=== PATIENT | female | born 1985 | race African-American/Black ===

== ENCOUNTER 2018-03-17 15:39 | Inpatient (IN) ==
[2018-03-17] MEDS ORDERED: ONDANSETRON 4 MG/2 ML VIAL ONE (16:24)
[2018-03-17] MEDS ORDERED: MORPHINE 4 MG/1 ML VIAL ONE (16:25)
[2018-03-17 16:31] LABS: Basophils # 0.1 10*3/uL (0.0-0.2); Basophils % 0.3 % (0.0-0.8); Eosinophils # 0.1 10*3/uL (0.0-0.87); Eosinophils % 0.8 % (0.00-10.9); Hematocrit 39.7 VOL% (35.7-47.0); Hemoglobin 12.1 GM/DL (12.0-16.0); Immature Granulocytes % 0.8 %; Immature Granulocytes Absolute 0.14 #; Lymphocytes # 3.4 10*3/uL (1.4-4.0); Lymphocytes % 18.5 % (21.3-54.2); Mean Corpuscular HGB Conc 30.5 GM/DL (32-36); Mean Corpuscular Hemoglobin 22 PG (27-34); Mean Corpuscular Volume 70.5 FL (87-102); Mean Platelet Volume 10.6 FL (9.6-12.0); Monocytes % 5.3 % (1.7-12.7); Neutrophils # 13.8 10*3/uL (1.4-7.4); Neutrophils % 74.3 % (38.7-73.9); Platelet Count 485 T/CUMM (130-400); Red Blood Count 5.63 MC/CUMM (3.8-5.5); Red Cell Distribution Width 16.2 % (9.3-17.3); White Blood Count 18.5 T/CUMM (4-12)
[2018-03-17] MEDS ORDERED: MORPHINE 4 MG/1 ML VIAL IV STA ×2 (16:39→19:41)
[2018-03-17] MEDS ORDERED: ONDANSETRON 4 MG/2 ML VIAL IV STA ×2 (16:40→19:41)
[2018-03-17 16:41] LABS: Alanine Aminotransferase 24 U/L (13-56); Albumin 3.1 G/DL (3.4-5.0); Alkaline Phosphatase 97 U/L (45-117); Aspartate Amino Transferase 22 U/L (0-37); Bilirubin,Total < 0.39 MG/DL (0.2-1.0); Blood Urea Nitrogen 14 MG/DL (7-18); Calcium 8.6 MG/DL (8.5-10.1); Glucose 111 MG/DL (74-106); Osmolality,Calculated 280.4 MOS/KG (273-304); Potassium 3.6 MMOL/L (3.5-5.1); Sodium 140 MMOL/L (136-145); Total Protein 8.2 G/DL (6.4-8.3)
[2018-03-17 17:52] LABS: Apearance,Urine CLEAR (Clear); Bilirubin,Urine Negative (Negative); Blood, Urine Negative (Negative); Glucose,Urine (UA) Negative (Negative); Ketones,Urine Negative (Negative); Mucus,Urine Occasional /LPF (Occasional); Nitrite,Urine Negative (Negative); Protein,Urine Negative; Urine Color Yellow (Yellow); Urine Specific Gravity 1.029 (1.001-1.035); Urine Urobilinogen < 2.0 EU/DL (0.2-1.0); WBC,Urine 1 /HPF (0-6)
[2018-03-17 19:26] LABS: Lactic Acid 3.5 MMOL/L (0.4-2.0)
[2018-03-17] MEDS ORDERED: ceFAZolin 1,000 MG VIAL ONE (20:50)
[2018-03-18] MEDS ORDERED: PROMETHAZINE 25 MG/1 ML VIAL IM PRN (02:34)
[2018-03-18] MEDS ORDERED: oxyCODONE IR 5 MG TABLET PO PRN (02:34)
[2018-03-18] MEDS ORDERED: MAGNESIUM HYDROXIDE SUSP 30 ML UDCUP PO PRN (02:34)
[2018-03-18] MEDS ORDERED: ONDANSETRON 4 MG/2 ML VIAL IV PRN (02:34)
[2018-03-18] MEDS ORDERED: SEVOFLURANE 1 UNIT/15 MINUTE INH ONE (03:16)
[2018-03-18] MEDS ORDERED: PROPOFOL 200 MG/20 ML VIAL IV ONE (03:16)
[2018-03-18] MEDS ORDERED: fentaNYL 100 MCG/2 ML VIAL ONE (03:17)
[2018-03-18] MEDS ORDERED: MIDAZOLAM 2 MG/2 ML VIAL ONE (03:17)
[2018-03-18] MEDS ORDERED: SUFentanil 50 MCG/ML AMP ONE (03:17)
[2018-03-18] MEDS ORDERED: DEXAMETHASONE 10 MG/1 ML VIAL ONE (03:17)
[2018-03-18] MEDS ORDERED: KETOROLAC 30 MG/1 ML VIAL ONE (03:18)
[2018-03-18] MEDS ORDERED: GLYCOPYRROLATE 0.4 MG/2 ML VIAL ONE (03:18)
[2018-03-18] MEDS ORDERED: SODIUM CHLORIDE 0.9% 3,000 ML IV ONE (03:18)
[2018-03-18] MEDS ORDERED: NEOSTIGMINE 10 MG/10 ML VIAL ONE (03:18)
[2018-03-18] MEDS ORDERED: ACETAMINOPHEN 1,000 MG/100 ML VIAL IV ONE (03:18)
[2018-03-18] MEDS ORDERED: ONDANSETRON 4 MG/2 ML VIAL ONE (03:18)
[2018-03-18] MEDS ORDERED: ROCURONIUM 100 MG/10 ML VIAL IV ONE (03:18)
[2018-03-18] MEDS ORDERED: SUCCINYLCHOLINE 200 MG/10 ML VIAL ONE (03:18)
[2018-03-18] MEDS: DEXTROSE 5% NACL 0.45% 1,000 ML IV SCH ×2 (03:40→23:23)
[2018-03-18] MEDS: HYDROmorphone 2 MG/1 ML VIAL IV PRN ×4 (04:53→21:49)
[2018-03-18 07:29] LABS: Basophils % 0.1 % (0.0-0.8); Hematocrit 32.4 VOL% (35.7-47.0); Immature Granulocytes % 0.2 %; Immature Granulocytes Absolute 0.02 #; Lymphocytes # 0.8 10*3/uL (1.4-4.0); Lymphocytes % 8.2 % (21.3-54.2); Mean Corpuscular HGB Conc 29.6 GM/DL (32-36); Mean Corpuscular Hemoglobin 21 PG (27-34); Mean Corpuscular Volume 70.4 FL (87-102); Mean Platelet Volume 10.7 FL (9.6-12.0); Monocytes # 0.7 10*3/uL (0.11-0.8); Monocytes % 6.5 % (1.7-12.7); Neutrophils # 8.7 10*3/uL (1.4-7.4); Platelet Count 395 T/CUMM (130-400); Red Cell Distribution Width 15.9 % (9.3-17.3)
[2018-03-18 07:35] LABS: White Blood Count 10.2 T/CUMM (4-12)
[2018-03-18 07:36] LABS: Hemoglobin 9.6 GM/DL (12.0-16.0)
[2018-03-18 07:48] LABS: Calcium 7.2 MG/DL (8.5-10.1); Osmolality,Calculated 282.1 MOS/KG (273-304)
[2018-03-18] MEDS: ceFAZolin 2,000 MG in PREMIX 1 EACH IV SCH ×2 (10:08→18:20)
[2018-03-18] MEDS: oxyCODONE IR 5 MG TABLET PO PRN (18:19)
[2018-03-18] MEDS: ENOXAPARIN 40 MG/0.4 ML SYRINGE SUBCUT SCH (22:59)
[2018-03-19] MEDS: DEXTROSE 5% NACL 0.45% 1,000 ML IV SCH ×3 (01:40→17:05)
[2018-03-19] MEDS: oxyCODONE IR 5 MG TABLET PO PRN ×2 (02:34→23:46)
[2018-03-19 06:38] LABS: Basophils % 0.3 % (0.0-0.8); Eosinophils % 0.2 % (0.00-10.9); Hematocrit 26.6 VOL% (35.7-47.0); Immature Granulocytes % 0.4 %; Immature Granulocytes Absolute 0.05 #; Lymphocytes # 1.7 10*3/uL (1.4-4.0); Lymphocytes % 14.4 % (21.3-54.2); Mean Corpuscular HGB Conc 30.1 GM/DL (32-36); Mean Corpuscular Hemoglobin 21 PG (27-34); Monocytes # 1.3 10*3/uL (0.11-0.8); Monocytes % 10.7 % (1.7-12.7); Neutrophils # 8.8 10*3/uL (1.4-7.4); Platelet Count 318 T/CUMM (130-400); Red Cell Distribution Width 15.8 % (9.3-17.3); White Blood Count 11.9 T/CUMM (4-12)
[2018-03-19] MEDS: HYDROmorphone 2 MG/1 ML VIAL IV PRN ×2 (06:46→17:12)
[2018-03-19] MEDS: ENOXAPARIN 40 MG/0.4 ML SYRINGE SUBCUT SCH (21:22)
[2018-03-20] MEDS: DEXTROSE 5% NACL 0.45% 1,000 ML IV SCH ×4 (03:14→21:24)
[2018-03-20] MEDS: HYDROmorphone 2 MG/1 ML VIAL IV PRN ×2 (03:15→21:24)
[2018-03-20 05:37] LABS: Basophils % 0.2 % (0.0-0.8); Eosinophils # 0.2 10*3/uL (0.0-0.87); Eosinophils % 1.4 % (0.00-10.9); Hematocrit 24.9 VOL% (35.7-47.0); Hemoglobin 7.5 GM/DL (12.0-16.0); Immature Granulocytes % 0.9 %; Immature Granulocytes Absolute 0.12 #; Lymphocytes # 2.7 10*3/uL (1.4-4.0); Lymphocytes % 20.2 % (21.3-54.2); Mean Corpuscular HGB Conc 30.1 GM/DL (32-36); Mean Corpuscular Hemoglobin 21 PG (27-34); Mean Corpuscular Volume 69.6 FL (87-102); Mean Platelet Volume 11.1 FL (9.6-12.0); Monocytes # 1.3 10*3/uL (0.11-0.8); Monocytes % 9.5 % (1.7-12.7); Neutrophils # 8.9 10*3/uL (1.4-7.4); Neutrophils % 67.8 % (38.7-73.9); Platelet Count 325 T/CUMM (130-400); Red Blood Count 3.58 MC/CUMM (3.8-5.5); Red Cell Distribution Width 15.5 % (9.3-17.3); White Blood Count 13.1 T/CUMM (4-12)
[2018-03-20] MEDS: oxyCODONE IR 5 MG TABLET PO PRN ×3 (08:57→17:27)
[2018-03-20] MEDS: MULTIVITAMIN (INTRINSIC) CAPSULE PO SCH (08:57)
[2018-03-20] MEDS: ENOXAPARIN 40 MG/0.4 ML SYRINGE SUBCUT SCH (21:27)
[2018-03-21] MEDS: oxyCODONE IR 5 MG TABLET PO PRN ×6 (01:09→22:01)
[2018-03-21] MEDS: DEXTROSE 5% NACL 0.45% 1,000 ML IV SCH ×3 (02:26→22:27)
[2018-03-21 04:42] LABS: Hematocrit 24.5 VOL% (35.7-47.0); Hemoglobin 7.5 GM/DL (12.0-16.0)
[2018-03-21] MEDS: MULTIVITAMIN (INTRINSIC) CAPSULE PO SCH (08:52)
[2018-03-21] MEDS: ENOXAPARIN 40 MG/0.4 ML SYRINGE SUBCUT SCH (22:01)
[2018-03-22] MEDS: oxyCODONE IR 5 MG TABLET PO PRN ×4 (02:06→17:22)
[2018-03-22 05:19] LABS: Calcium 8.2 MG/DL (8.5-10.1); Osmolality,Calculated 277.4 MOS/KG (273-304); Potassium 3.5 MMOL/L (3.5-5.1)
[2018-03-22] MEDS: DEXTROSE 5% NACL 0.45% 1,000 ML IV SCH ×3 (06:12→22:52)
[2018-03-22] MEDS: MULTIVITAMIN (INTRINSIC) CAPSULE PO SCH (09:11)
[2018-03-22] MEDS: HYDROmorphone 2 MG/1 ML VIAL IV PRN (22:51)
[2018-03-22] MEDS: ENOXAPARIN 40 MG/0.4 ML SYRINGE SUBCUT SCH (22:52)
[2018-03-22] MEDS: ACETAMINOPHEN 325 MG TABLET PO PRN (22:52)
[2018-03-23] MEDS: HYDROmorphone 2 MG/1 ML VIAL IV PRN ×4 (03:40→20:12)
[2018-03-23 07:28] LABS: Apearance,Urine CLOUDY (Clear); Bacteria,Urine Occasional /HPF (Few); Bilirubin,Urine Negative (Negative); Blood, Urine Negative (Negative); Glucose,Urine (UA) Negative (Negative); Ketones,Urine Negative (Negative); Mucus,Urine Occasional /LPF (Occasional); Nitrite,Urine Negative (Negative); Protein,Urine Negative; RBC,Urine 20 /HPF (0-4); Squamous Epithelial Cell,Urine Occasional /HPF (0-10); Urine Color Yellow (Yellow); Urine Specific Gravity 1.009 (1.001-1.035); Urine Urobilinogen < 2.0 EU/DL (0.2-1.0); WBC,Urine 26 /HPF (0-6)
[2018-03-23] MEDS: MULTIVITAMIN (INTRINSIC) CAPSULE PO SCH (08:18)
[2018-03-23] MEDS: oxyCODONE IR 5 MG TABLET PO PRN ×2 (08:18→23:40)
[2018-03-23] MEDS ORDERED: LEVOFLOXACIN INJ 500 MG in PREMIX 1 EACH IV SCH (09:00)
[2018-03-23] MEDS: ENOXAPARIN 40 MG/0.4 ML SYRINGE SUBCUT SCH (23:39)
[2018-03-24] MEDS: HYDROmorphone 2 MG/1 ML VIAL IV PRN (03:10)
[2018-03-24] MEDS: oxyCODONE IR 5 MG TABLET PO PRN ×4 (06:14→21:34)
[2018-03-24] MEDS: LEVOFLOXACIN 500 MG TABLET PO SCH (08:50)
[2018-03-24] MEDS: MULTIVITAMIN (INTRINSIC) CAPSULE PO SCH (08:50)
[2018-03-24] MEDS: ACETAMINOPHEN 325 MG TABLET PO PRN (14:48)
[2018-03-24] MEDS: ENOXAPARIN 40 MG/0.4 ML SYRINGE SUBCUT SCH (21:34)
[2018-03-25] MEDS: oxyCODONE IR 5 MG TABLET PO PRN ×3 (02:10→12:29)
[2018-03-25] MEDS: ACETAMINOPHEN 325 MG TABLET PO PRN (04:01)
[2018-03-25] MEDS: LEVOFLOXACIN 500 MG TABLET PO SCH (08:44)
[2018-03-25] MEDS: MULTIVITAMIN (INTRINSIC) CAPSULE PO SCH (08:44)
[2018-03-25] MEDS ORDERED: oxyCODONE IR 5 MG TABLET PO PRN (17:09)
[2018-03-25 20:06] VITALS: BP 102/60
== END 2018-03-25 19:46 | disposition home or self-care (01) | DRG 481 ==
LOC: N.ED 15:39 → N.3E 20:16
PROVIDERS: ADMIT Orthopaedic Surgery; ATTEND Orthopaedic Surgery